=== PATIENT | female | born 1950 | race Caucasian/White ===

== ENCOUNTER 2017-06-15 21:19 | Emergency (ER) | payer MEDICARE, MEDICAID ==
[~2017-06-15] VITALS: Ht 162.6 cm; Wt 55.2 kg
[2017-06-15 21:40] VITALS: BP 171/85; PULSE 100; RESP 14; TEMP 99.2; O2SAT 99
[2017-06-15] MEDS ORDERED: ALPR.25 PO (21:47)
[2017-06-15] MEDS ORDERED: diphenhydrAMINE HCL 50 MG/ML VIAL IM ONE (22:00)
[2017-06-15] MEDS ORDERED: FAMOTIDINE 20 MG TAB PO ONE (22:00)
[2017-06-15] MEDS ORDERED: VIST50CA PO (22:00)
[2017-06-15] MEDS ORDERED: DEXAMETHASONE SOD PHOS 20 MG/5 ML VIAL IM ONE (22:00)
[2017-06-15] MEDS ORDERED: RANI150T PO (22:00)
[2017-06-15] MEDS ORDERED: PRED20 PO (22:00)
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
[2017-06-15 22:19] VITALS: PULSE 84; RESP 16; O2SAT 95
== END 2017-06-15 22:44 | disposition home or self-care (01) ==
LOC: PHEFT 21:19
DX: L50.9 Urticaria, unspecified (principal); Z86.59 Personal history of other mental and behavioral disorders
CPT/HCPCS: 96372; 99284; J1100; J1200

== ENCOUNTER 2017-09-03 19:12 | Emergency (ER) | payer MEDICARE, MEDICAID ==
[~2017-09-03] VITALS: Ht 162.6 cm; Wt 55.0 kg
[~2017-09-03 19:12] MED LIST: ALPR.25 PO; PRED20 PO; RANI150T PO; VIST50CA PO
[2017-09-03 19:21] VITALS: BP 139/73; PULSE 97; RESP 16; TEMP 98.3; O2SAT 97
--- NOTE | 2017-09-03 19:38 | PD ---
HPI Chief Complaint: Fall Time Seen by Provider: 19:28 Travel History International Travel<30 days: No Contact w/Intl Traveler<30days: No Traveled to known affect area: No History of Present Illness HPI Patient comes in complaining of right knee pain that began 2 days ago after slipping in the shower twisting and landing on her right knee. Pain is worse with certain movement and walking. Describes pain as a sharp pain in the anterior aspect of her right knee that radiates distally. Denies any numbness or tingling. Denies any hitting her head or loss of consciousness. Not moving it improves the pain. PFSH Past Medical History Anxiety: Yes ?: Not Menopausal: Yes Social History Alcohol Use: No Tobacco Use: No Substance Use: No Allergies-Medications (Allergen,Severity, Reaction): Coded Allergies: No Known Allergies (Verified Adverse Reaction, Unknown, 09/03/17) Reported Meds & Prescriptions Reported Meds & Active Scripts Active Reported Xanax (Alprazolam) 0.25 Mg Tab 0.25 Mg PO Q4H PRN Review of Systems General / Constitutional: No: Fever Eyes: No: Visual changes HENT: No: Headaches Cardiovascular: No: Chest Pain or Discomfort Respiratory: No: Shortness of Breath Gastrointestinal: No: Abdominal Pain Genitourinary: No: Dysuria Musculoskeletal: Positive: Pain Skin: No Rash Neurologic: No: Weakness Psychiatric: No: Depression Endocrine: No: Polydipsia Hematologic/Lymphatic: No: Easy Bruising Physical Exam Narrative GENERAL: Well-developed, well nourished, in no acute distress, and non-ill appearing. SKIN: Focused skin assessment warm and dry. HEAD: Atraumatic. Normocephalic. EYES: Pupils equal and round. EOMI. No scleral icterus. No injection or drainage. ENT: No nasal bleeding or discharge. Mucous membranes pink and moist. NECK: Trachea midline. Supple. No nuclear rigidity. RESPIRATORY: No accessory muscle use. No respiratory distress. MUSCULOSKELETAL: No obvious deformities. No clubbing. No cyanosis. No edema. Full range of motion. Knee: Negative patellar apprehension, varus and valgus maneuvers, anterior draw test, and Kris test. Pulses equal BL distal to injury. Capillary refill less than 2 seconds distal to injury and equal BL. FROM distal to injury and equal BL. Strength distal to injury equal BL. NV intact distal to injury. Dorsal pulses equal BL. Sensation equal BL 1st web space. Patient reports tenderness to palpation over anterior aspect of right knee. There is no crepitus or traumatic lesions. NEUROLOGICAL: Awake and alert. No obvious cranial nerve deficits. Motor grossly within normal limits. Normal speech. PSYCHIATRIC: Appropriate mood and affect; insight and judgment normal. Data Data Last Documented VS Vital Signs Date Time Temp Pulse Resp B/P (MAP) Pulse Ox O2 Delivery O2 Flow Rate FiO2 09/03/17 19:21 98.3 97 16 139/73 (95) 97 Orders Orders Knee, Complete (4vws) (09/03/17 ) Ed Discharge Order (09/03/17 19:49) Splint Or Brace Apply/Monitor (09/03/17 19:49) [facility] Medical Decision Making Medical Screen Exam Complete: Yes Emergency Medical Condition: Yes Differential Diagnosis Fracture, sprain, contusion, dislocation Narrative Course There is no clinical evidence to suspect bony injury by exam. Radiographic examination revealed no fracture seen at this time. No obvious ligamental injury or obvious internal derangement is noted at this time. The anterior, posterior, lateral and medial collateral ligaments are intact and symmetrical. The distal extremity appears neurovascularly intact, without evidence of neurovascular injury nor compartment syndrome. Tendon exam also was intact. The effected limb was immobilized. The patient was discharged on pain medication along with sprain and splint care instructions and given warnings for vascular compromise. The patient is to follow up with Orthopedics and/or primary care provider. The patient agrees with plan. Patient in no obvious distress upon re-evaluation. All pertinent Radiology result(s) discussed with patient. Any questions/concerns in reference to patient diagnosis/condition discussed and clarified prior to patient's discharge. Reinforced sheer importance of close follow up with patient's primary physician or primary care clinic. Instructed patient to return to ED immediately, if symptoms return/worsen. Patient showed understanding of above instructions. Further instructions and recommendations were detailed in discharge paperwork. Patient ambulated without difficulty out of ED at discharge with knee immobilizer. Diagnosis Primary Impression: Right knee sprain Qualified Codes: S83.91XA - Sprain of unspecified site of right knee, initial encounter Referrals: Marquez Brannon MD Patient Instructions: General Instructions, Knee Immobilizer (ED), Knee Sprain (ED) Additional Instructions: Follow-up with your primary care physician and/or orthopedics this week for reevaluation. Wear knee immobilizer while awake until reevaluated . Use over- the-counter Tylenol as needed for pain. Apply ice to affected area 20 minutes per hour as needed for pain. Return to the emergency department if symptoms get worse. Disposition: 01 DISCHARGE HOME Condition: Stable Oscar Votg Sep 03, 2017 19:37
--- NOTE | 2017-09-03 19:53 | RADRPT ---
EXAM DATE/TIME: 09/03/2017 19:33 [facility] COMPARISON: No previous studies available for comparison. INDICATIONS : Right lateral knee pain post slip and fall in shower. MEDICAL HISTORY : None. SURGICAL HISTORY : None. ENCOUNTER: Initial ACUITY: 1 day PAIN SCORE: 10/10 LOCATION: Right lateral knee FINDINGS: Four view examination of the right knee demonstrates no evidence of fracture or dislocation. Bony mi neralization is normal. The articular surfaces are intact. The suprapatellar soft tissues have a no rmal configuration. CONCLUSION: 1. No acute findings. John Paul Barrera MD on September 03, 2017 at 19:49 Board Certified Radiologist. This report was verified electronically.
== END 2017-09-03 20:17 | disposition home or self-care (01) ==
LOC: PHEFT 19:12
DX: S83.91XA Sprain of unspecified site of right knee, initial encounter (principal); W18.2XXA Fall in (into) shower or empty bathtub, initial encounter; Y93.E1 Activity, personal bathing and showering
CPT/HCPCS: 73564; 99283; L1830